=== PATIENT | male | born 1950 | race Asian ===

== ENCOUNTER 2018-11-02 08:41 | Emergency (ER) | payer BC, OTHER ==
[~2018-11-02] VITALS: Ht 162.6 cm; Wt 61.2 kg
[2018-11-02 08:41] VITALS: BP_SYST 154
[~2018-11-02 08:41] MED LIST: FOLI-59 PO; METF-510 PO; SIMV20TA2 PO; VALSARTAN PO
--- NOTE | 2018-11-02 08:41 | NUR ---
BROUGHT BACK TO BED #8 AND TRIAGED. REPORT GIVEN TO FRANDY
[2018-11-02] MEDS ORDERED: NACL 0.9% 1,000 ML IV ONE (08:49)
[2018-11-02] MEDS ORDERED: KETOROLAC TROMETHAMINE 30 MG VIAL IVP ONE (09:00)
--- NOTE | 2018-11-02 09:05 | NUR ---
Patient presents with abdominal, testicle and rectum pain 8/10 pain. Pain onset last night. Patient has history of diverticulitis and enlarged prostate. Patient has history of gall bladder removal and polyp removal from colon. Will continue to monitor.
--- NOTE | 2018-11-02 09:10 | NUR ---
ER at bedside examining patient.
[2018-11-02] MEDS ORDERED: ASPI-1155 PO (09:28)
[2018-11-02] MEDS ORDERED: VALS1TAB74 PO (09:28)
[2018-11-02] MEDS ORDERED: EMPA10TA PO (09:28)
--- NOTE | 2018-11-02 09:29 | NUR ---
Medication reconciliation completed with information provided by FAMILY. Any prior medication reconciliation on file was reviewed and corrected.
[2018-11-02 09:32] LABS: EOSINOPHILS # (AUTO) 0.2 K/uL (0.0-0.4); EOSINOPHILS % (AUTO) 1.2 % (0.0-4.0); MEAN CORPUSCULAR VOLUME 90 fL (79.0-98.0); RED CELL DISTRIBUTION WIDTH 13.1 % (9.0-15.0)
[2018-11-02 09:40] LABS: CALCIUM 9.9 mg/dL (8.4-11.0); CREATININE 1.09 mg/dL (0.55-1.30); POTASSIUM 3.7 mmol/L (3.5-5.1)
[2018-11-02 09:41] LABS: BILIRUBIN,URINE NEGATIVE (NEGATIVE); BLOOD, URINE 3+ (NEGATIVE); CLARITY/URINE CLOUDY (CLEAR); COLOR,URINE RED (YELLOW); GLUCOSE,URINE 3+ (NEGATIVE); KETONES,URINE NEGATIVE (NEGATIVE); LEUKOCYTE ESTERASE ,URINE TRACE (NEGATIVE); PROTEIN URINE 3+ (NEGATIVE); UROBILINOGEN,URINE 0.2 (0.2-1.0)
[2018-11-02 09:42] LABS: PROTHROMBIN TIME 9.8 SECS (9.5-12.5)
[2018-11-02 09:44] LABS: HEMATOCRIT 49.2 % (36-54); HEMOGLOBIN 15.9 g/dL (14.0-18.0); MEAN CORPUSCULAR HEMOGLOBIN 29 pg (27-31); MEAN CORPUSCULAR HGB CONC 32 % (32-36); NEUTROPHILS % (AUTO) 81.8 % (40.0-70.0); PLATELET COUNT (AUTO) 212 K/uL (130-430); RED BLOOD CELL COUNT(AUTO) 5.49 MIL/uL (4.2-6.2); WHITE BLOOD COUNT (AUTO) 12.5 K/uL (4.8-10.8)
[2018-11-02 09:45] LABS: ALBUMIN 4.5 g/dL (3.4-4.8); BASOPHILS # (AUTO) 0.1 K/uL (0.0-0.2); BASOPHILS % (AUTO) 0.4 % (0.0-2.0); LYMPHOCYTES # (AUTO) 1.8 K/uL (1.0-5.5); LYMPHOCYTES % (AUTO) 14.2 % (20.5-51.5); MONOCYTES # (AUTO) 0.3 K/uL (0.0-1.0); MONOCYTES % (AUTO) 2.4 % (1.7-9.3); NEUTROPHILS # (AUTO) 10.1 K/uL (1.8-7.7); TOTAL BILIRUBIN 0.7 mg/dL (0.0-1.0)
[2018-11-02 09:54] LABS: NITRITE, URINE POSITIVE (NEGATIVE)
[2018-11-02] MEDS ORDERED: cefTRIAXone 1 GM IVPB PREMIX 50 ML IV ONE (10:00)
--- NOTE | 2018-11-02 10:02 | NUR ---
Patient transported to radiology via gurney, accompanied by forrest.
[2018-11-02 10:10] LABS: BACTERIA,URINE None Seen /HPF (None Seen); RBC,URINE >100 /HPF (0-3)
--- NOTE | 2018-11-02 12:18 | NUR ---
Levine cath converted to leg bag.
--- NOTE | 2018-11-02 12:25 | NUR ---
Dr. Shukla at bedside speaking with family.
[2018-11-02 12:30] VITALS: BP_SYST 131
--- NOTE | 2018-11-02 12:30 | NUR ---
Patient given written and verbal discharge instructions and verbalizes understanding. ER MD discussed with patient the results and treatment provided. Patient in stable condition. ID arm band removed. IV catheter removed intact and dressing applied, no active bleeding. Rx of Doxycycline, Flomax, and Tylenol given. Patient educated on pain management and to follow up with PMD. Pain Scale 0/10. Opportunity for questions provided and answered. Medication side effect fact sheet provided.
== END 2018-11-02 12:30 | disposition home or self-care (01) ==
LOC: SED 08:41
DX: N30.01 Acute cystitis with hematuria (principal); N40.0 Benign prostatic hyperplasia without lower urinary tract symptoms; R33.9 Retention of urine, unspecified; E11.9 Type 2 diabetes mellitus without complications; I10 Essential (primary) hypertension; Z90.49 Acquired absence of other specified parts of digestive tract; Z79.82 Long term (current) use of aspirin; Z79.899 Other long term (current) drug therapy
CPT/HCPCS: 36415; 74176; 80053; 81000; 83605; 85025; 85610; 87040; 87086; 87186; 96365; 96375; 99284; J0696; J1885; J7030